=== PATIENT | male | born 1965 | race Caucasian/White ===

== ENCOUNTER → 2021-06-16 11:56 | Outpatient (CLI) | payer OTHER, SELFPAY ==
--- NOTE | ~2021-06-16 | XR_ITS ---
XR lumbar spine 2-3V 06/16/2021 13:28 Indication: Low back pain Procedure: 4 views lumbar spine Comparison: No prior studies for comparison. Findings: Vertebral body heights are maintained. There is disc narrowing at L4-5 and L5-S1. There is endplate hypertrophy at L5-S1. There is facet hypertrophy at L5-S1. Levoscoliosis. No evidence for sp ondylolisthesis. Impression: 1: Moderate lower lumbar spondylosis with levoscoliosis. Reviewed, dictated and finalized at location A. Impression: 1: Moderate lower lumbar spondylosis with levoscoliosis.
--- NOTE | ~2021-06-16 | XR_ITS ---
XR thoracic spine 2V 06/16/2021 13:28 Indication: Back pain Procedure: 3 views thoracic spine Comparison: No prior studies for comparison. Findings: Mild dextrocurvature of the thoracic spine. No fracture, subluxation or dislocation. No par aspinal soft tissue abnormality. Surrounding osseous structures within normal limits. There is athero sclerosis. Pedicles intact. Impression: 1: Mild thoracic spondylosis with dextroscoliosis. Reviewed, dictated and finalized at location A. Impression: 1: Mild thoracic spondylosis with dextroscoliosis.
--- NOTE | ~2021-06-16 | XR_ITS ---
XR cervical spine 4-5V 06/16/2021 13:28 Indication: Neck pain Procedure: 6 views of the cervical spine including flexion/extension views Comparison: No prior studies for comparison. Findings: There is disc narrowing at C5-6. No fracture, subluxation or dislocation. There is moderate uncinate degenerative change at C5-6. No significant alteration of alignment with flexion/extension. Odontoid process within normal limits. Lateral masses are normally aligned. No prevertebral soft tis juanjose swelling. Impression: 1: Moderate cervical spondylosis at C5-6. Reviewed, dictated and finalized at location A. Impression: 1: Moderate cervical spondylosis at C5-6.
== END ==
PROVIDERS: Visit Provider Chiropractor
DX: M47.894 Other spondylosis, thoracic region (principal); M47.892 Other spondylosis, cervical region; M47.896 Other spondylosis, lumbar region
CPT/HCPCS: 72050; 72070; 72100

== ENCOUNTER 2022-11-21 23:50 | Emergency (ER) | payer OTHER, SELFPAY ==
[2022-11-21 23:51] VITALS: BP 172/104; PULSE 110; RESP 16; TEMP 36.7; O2SAT 97
[2022-11-22 00:59] LABS: Alanine Aminotransferase 32 U/L (6-50); Alkaline Phosphatase 91 U/L (38-126); Anion Gap 8 mmol/L (8-16); Aspartate Amino Transferase 28 U/L (17-59); Bilirubin,Total 0.7 mg/dL (0.2-1.3); Blood Urea Nitrogen 19 mg/dL (9-20); Calcium 9.6 mg/dL (8.4-10.2); Carbon Dioxide 30 mmol/L (22-30); Chloride 102 mmol/L (98-107); Estimated Glomerular Filt Rate > 60; Glucose 87 mg/dL (65-110); Potassium 4.2 mmol/L (3.4-5.0); Sodium 140 mmol/L (137-145)
[2022-11-22 01:03] LABS: Basophils Absolute Auto 0.1 K/mm3 (0.0-0.1); Basophils Percent Auto 0.6 % (0.2-1.2); Eosinophils Absolute Auto 0.2 K/mm3 (0-0.3); Eosinophils Percent Auto 1.4 % (0-4.4); Hematocrit 49.1 % (42.0-52.0); Immature Granulocyte Absolute 0.04 K/mm3 (0.00-0.031); Immature Granulocyte Percent A 0.3 % (0-0.5); Lymphocytes Absolute Auto 2.57 K/mm3 (0.9-3.2); Lymphocytes Percent Auto 20.5 % (18.3-44.2); Mean Corpuscular HGB Conc 32.6 g/dl (32-36); Mean Corpuscular Hemoglobin 28.6 pg (26-34); Mean Corpuscular Volume 87.7 fl (80-100); Mean Platelet Volume 9.9 fl (7.4-10.4); Monocytes Absolute Auto 0.8 K/mm3 (0.1-0.6); Neutrophils Absolute Auto 8.9 K/mm3 (1.3-6.7); Neutrophils Percent Auto 71.2 % (45.5-73.1); Platelet Count Result 279 k/mm3 (150-375); Red Cell Distribution Width 12.9 % (11.5-14.5); White Blood Count 12.6 K/mm3 (4.5-10.0)
[2022-11-22 01:53] LABS: Influenza A QL RT-PCR Negative (Negative); Influenza B QL RT-PCR Negative (Negative); RSV RNA, RT-PCR Negative (Negative); SARS-CoV-2 RNA PCR Negative
[2022-11-22 02:23] LABS: Acetaminophen < 10 ug/mL (10-30); Ethanol < 10 mg/dL (<10); Salicylate < 1.0 mg/dL (2-20)
--- NOTE | 2022-11-22 02:25 | ED.GENADULT ---
HPI - General Adult General Chief complaint: Psychiatric Symptoms Stated complaint: SI Time Seen by Provider: 11/22/22 00:35 History of Present Illness HPI narrative: Patient 57-year-old gentleman who presents the emergency department with chief complaint of needs mental health evaluation. The patient states that he has been under a lot of stress in his life with relationships and family issues. The patient states that he does not specifically want to harm himself but is very concerned about that Related Data Allergies Allergy/AdvReac Type Severity Reaction Status Date / Time No Known Drug Allergies Allergy Unknown Other Unverified 11/22/22 00:51 [facility] Social History Social History Substance use type: marijuana Course Vital Signs Vital signs: Vital Signs Temperature 36.7 C 11/21/22 23:51 Pulse Rate 110 H 11/21/22 23:51 Respiratory Rate 16 11/21/22 23:51 Blood Pressure 172/104 H 11/21/22 23:51 Pulse Oximetry 97 11/21/22 23:51 Oxygen Delivery Room Air 11/21/22 23:51 Temperature 36.7 C 11/21/22 23:51 Pulse Rate 110 H 11/21/22 23:51 Respiratory Rate 16 11/21/22 23:51 Blood Pressure 172/104 H 11/21/22 23:51 Pulse Oximetry 97 11/21/22 23:51 Oxygen Delivery Room Air 11/21/22 23:51 Medical Decision Making [facility] Narrative Medical decision making narrative: Differential diagnosis includes suicidal ideation, depression, anxiety, substance-induced mood disorder Laboratory studies were obtained which showed normal CBC electrolytes are within normal limits urinalysis showed a possible UTI salicylate acetaminophen and alcohol were negative COVID and influenza were negative. Patient is medically cleared for psychiatric evaluation referral transfer and admission Patient was seen by the mental health screener. At this time the patient did not meet criteria for involuntary admission and was not wanting voluntary admission Vital Signs Vital Signs: Vital Signs Temperature 36.7 C 11/21/22 23:51 Pulse Rate 110 H 11/21/22 23:51 Respiratory Rate 16 11/21/22 23:51 Blood Pressure 172/104 H 11/21/22 23:51 Pulse Oximetry 97 11/21/22 23:51 Oxygen Delivery Room Air 11/21/22 23:51 Temperature 36.7 C 11/21/22 23:51 Pulse Rate 110 H 11/21/22 23:51 Respiratory Rate 16 11/21/22 23:51 Blood Pressure 172/104 H 11/21/22 23:51 Pulse Oximetry 97 11/21/22 23:51 Oxygen Delivery Room Air 11/21/22 23:51 Lab Data 11/22/22 00:33 11/22/22 00:33 Labs: Lab Results 11/22/22 11/22/22 11/22/22 Range/Units 00:33 00:33 00:33 WBC 12.6 H (4.5-10.0) K/mm3 RBC 5.60 (4.6-6.20) M/mm3 Hgb 16.0 (14.0-18.0) g/dL Hct 49.1 (42.0-52.0) % MCV 87.7 (80-100) fl MCH 28.6 (26-34) pg MCHC 32.6 (32-36) g/dl RDW 12.9 (11.5-14.5) % Plt Count 279 (150-375) k/mm3 MPV 9.9 (7.4-10.4) fl Immature Gran % (Auto) 0.3 (0-0.5) % Neut % (Auto) 71.2 (45.5-73.1) % Lymph % (Auto) 20.5 (18.3-44.2) % Carson % (Auto) 6.0 (2.6-8.5) % Eos % (Auto) 1.4 (0-4.4) % Baso % (Auto) 0.6 (0.2-1.2) % Lymph # (Auto) 2.57 (0.9-3.2) K/mm3 Carson # (Auto) 0.8 H (0.1-0.6) K/mm3 Eos # (Auto) 0.2 (0-0.3) K/mm3 Baso # (Auto) 0.1 (0.0-0.1) K/mm3 Abs Immat Gran (auto) 0.04 H (0.00-0.031) K/mm3 Absolute Neuts (auto) 8.9 H (1.3-6.7) K/mm3 Absolute Nucleated RBC 0.0 (0.0-0.012) K/mm3 Nucleated RBC % 0.0 (0.0-0.2) % Sodium (137-145) mmol/L Potassium (3.4-5.0) mmol/L Chloride (98-107) mmol/L Carbon Dioxide (22-30) mmol/L Anion Gap (8-16) mmol/L BUN (9-20) mg/dL Creatinine (0.7-1.3) mg/dL Estim Creat Clear Calc Estimated GFR (59 - ) Glucose (65-110) mg/dL Calcium (8.4-10.2) mg/dL Total Bilirubin (0.2-1.3) mg/dL AST (17-59) U/L ALT (6-50) U/L Alkaline Phosphatase (38-126) U/L Total Protein (6.3-8.2)
[2022-11-22 03:04] LABS: Appearance Urine Cloudy (Clear); Bacteria Urine 4+ /hpf; Bilirubin Urine Negative (Negative); Blood Urine Negative (Negative); Color Urine Yellow (Yellow); Glucose Urine UA Negative (Negative); Hyaline Casts Urine Present /lpf; Ketones Urine Trace mg/dL (Negative); Leukocyte Esterase Ur 1+ LEU/UL (Negative); Mucus Urine Present /lpf; Nitrate Urine Negative (Negative); Protein Urine Negative (Negative); RBC Urine 0-2 /hpf (0-2); Specific Grav Ur 1.018 (1.001-1.035); Squamous Epithelial Cell Urine None seen /hpf (Few); Urobilinogen Urine 0.2 mg/dL (<2.0); WBC Urine 21-50 /hpf; pH Urine 6.5 (5.0-9.0)
[2022-11-22 03:08] LABS: Add Urine Microscopic? YES
[2022-11-22 04:42] LABS: Barbiturate Screen Urine Negative (Negative); Benzodiazepines Screen Urine Negative (Negative); Cannabinoid Screen Urine Negative (Negative); Cocaine Screen Urine Negative (Negative); Methadone Screen Urine Negative (Negative); Opiate Screen Urine Negative (Negative); Phencyclidine Screen Urine Negative (Negative)
[2022-11-22 05:11] LABS: Amphetamine Screen Urine Positive (Negative)
[2022-11-22 06:55] VITALS: BP 137/96; PULSE 96; RESP 16; O2SAT 99
== END 2022-11-22 07:05 | disposition home or self-care (01) ==
PROVIDERS: Emergency Provider Emergency Medicine; PCP Family Medicine
DX: F32.A Depression, unspecified (principal); N39.0 Urinary tract infection, site not specified; Z20.822 Contact with and (suspected) exposure to COVID-19
CPT/HCPCS: 36415; 80053; 80307; 81001; 84443; 85025; 87077; 87086; 87186; 87637; 99284

== ENCOUNTER 2022-12-21 14:51 | Emergency (ER) | payer OTHER, SELFPAY ==
--- NOTE | ~2022-12-21 | CT_ITS ---
EXAMINATION: CT abdomen pelvis w con DATE: 12/21/2022 20:21 INDICATION: Epigastric and left-sided abdominal pain TECHNIQUE: Computed tomography (CT) of the abdomen and pelvis was performed with 100 mL Omnipaque-350 intravenous contrast. Automated exposure control and iterative reconstruction technique were employe d. The dose-length product was 313.03 mGy-cm. COMPARISON: None. FINDINGS: Lower thorax: Unremarkable Liver: Normal. Biliary/Gallbladder: Gallbladder is normal. No bile duct dilation. Pancreas: No mass or duct dilation. Spleen: Normal. Adrenals:No mass. Kidneys: No mass, stone, or hydronephrosis. GI tract: Severe antral wall edema. No small or large bowel dilation. Normal appendix. Diverticulosis without diverticulitis. Mesentery/Peritoneum: No ascites, mass, or free air. Retroperitoneum: No mass. Pelvis: Prostatomegaly with calcifications. The remaining pelvic organs are within normal limits. Soft Tissues: Soft tissues and body wall unremarkable. Bones: No acute osseous finding. IMPRESSION: Severe antral gastritis. Reviewed, dictated and finalized at location K. IMPRESSION: Severe antral gastritis.
[2022-12-21 15:23] VITALS: BP 161/110; PULSE 87; RESP 17; TEMP 36.6; O2SAT 99
[2022-12-21 15:51] LABS: Basophils Absolute Auto 0.1 K/mm3 (0.0-0.1); Basophils Percent Auto 0.5 % (0.2-1.2); Eosinophils Percent Auto 0.2 % (0-4.4); Hematocrit 51.5 % (42.0-52.0); Immature Granulocyte Absolute 0.05 K/mm3 (0.00-0.031); Immature Granulocyte Percent A 0.3 % (0-0.5); Lymphocytes Percent Auto 10.1 % (18.3-44.2); Mean Corpuscular Hemoglobin 28.6 pg (26-34); Mean Corpuscular Volume 86.6 fl (80-100); Mean Platelet Volume 9.7 fl (7.4-10.4); Monocytes Absolute Auto 0.8 K/mm3 (0.1-0.6); Monocytes Percent Auto 5.4 % (2.6-8.5); Neutrophils Absolute Auto 12.4 K/mm3 (1.3-6.7); Neutrophils Percent Auto 83.5 % (45.5-73.1); Platelet Count Result 272 k/mm3 (150-375); Red Blood Count 5.95 M/mm3 (4.6-6.20); Red Cell Distribution Width 12.7 % (11.5-14.5); White Blood Count 14.8 K/mm3 (4.5-10.0)
[2022-12-21 16:01] LABS: Alanine Aminotransferase 31 U/L (6-50); Albumin Level 4.8 g/dL (3.5-5.1); Alkaline Phosphatase 81 U/L (38-126); Anion Gap 6 mmol/L (8-16); Aspartate Amino Transferase 28 U/L (17-59); Bilirubin,Total 0.7 mg/dL (0.2-1.3); Blood Urea Nitrogen 14 mg/dL (9-20); Calcium 10.1 mg/dL (8.4-10.2); Carbon Dioxide 33 mmol/L (22-30); Chloride 95 mmol/L (98-107); Estimated CRCL calculation 101 ml/min; Estimated Glomerular Filt Rate > 60; Glucose 128 mg/dL (65-110); Lipase 144 U/L (23-300); Potassium 4.3 mmol/L (3.4-5.0); Sodium 134 mmol/L (137-145)
--- NOTE | 2022-12-21 19:43 | ED.ABDPAIN ---
HPI - Abdominal Pain General Chief Complaint: Abdominal Pain Stated Complaint: ABD PAIN X2DAYS Time Seen by Provider: 12/21/22 19:12 History of Present Illness HPI narrative: 57-year-old male presented to the emergency department for evaluation of epigastric and left-sided abdominal pain. Patient states the pain started a few days ago and has been persistent. Patient states he has had no nausea vomiting at home but did develop some nausea here in the ED. Patient denies any significant past medical history. Patient denies any prior history of abdominal surgeries. Patient states he has no prior history of pancreatitis. Patient states he does drink multiple glasses of wine a day but denies any prior history of pancreatitis and denies any prior history of gallbladder disease. Related Data Allergies Allergy/AdvReac Type Severity Reaction Status Date / Time No Known Drug Allergies Allergy Unknown Other Verified 12/21/22 19:52 Review of Systems Review of Systems: All systems reviewed & are unremarkable except as noted in HPI and below PMFSH Social History Social History Substance use type: marijuana Exam Narrative: APPEARANCE: Well appearing, distress secondary to epigastric pain, well-nourished HEAD: normocephalic, atraumatic. EYES: PERRLA/EOMI, conjunctivae clear. NECK: Supple. No adenopathy, no masses. RESPIRATORY: Airway patent, respirations nonlabored. Clear to auscultation bilaterally, no rales, rhonchi, wheezing. CARDIOVASCULAR: Regular rate and rhythm without murmurs rubs or gallops. ABDOMINAL: Soft, nondistended, normal bowel sounds, epigastric tenderness to palpation MUSCULOSKELETAL: Moves all extremities. Strength/ROM intact, No edema, No calf tenderness. NEURO: Alert. Cranial nerves II through XII intact. Grossly intact SKIN: Warm, dry. Normal Color Course Course Emergency Course: 57-year-old male presented ED for evaluation of epigastric pain. Patient's symptoms were improved with a GI cocktail. Patient was afebrile with a mild leukocytosis of 14.8. Patient's CMP was similar to his baseline. CT scan showed gastritis. Patient was started on Prilosec at home and provided Carafate as well. Patient was encouraged of close follow-up with GI. All question concerns were addressed patient was well-appearing at discharge. Vital Signs Vital signs: Vital Signs Temperature 97.8 F 12/21/22 15:23 Pulse Rate 87 12/21/22 15:23 Respiratory Rate 17 12/21/22 15:23 Blood Pressure 161/110 H 12/21/22 15:23 Pulse Oximetry 99 12/21/22 15:23 Oxygen Delivery Room Air 12/21/22 15:23 Temperature 97.8 F 12/21/22 15:23 Pulse Rate 62 12/21/22 21:24 Respiratory Rate 18 12/21/22 21:24 Blood Pressure 182/110 H 12/21/22 21:24 Pulse Oximetry 100 12/21/22 21:24 Oxygen Delivery Room Air 12/21/22 15:23 MDM - Abdominal Pain Differential Diagnosis Differential diagnosis: Likely abdominal pain, diverticulitis, gastroenteritis, pancreatitis and small bowel obstruction Lab Data Attestation: I reviewed the patient's lab results. 12/21/22 15:44 12/21/22 15:44 Labs: Lab Results 12/21/22 12/21/22 12/21/22 Range/Units 15:44 15:44 19:44 WBC 14.8 H (4.5-10.0) K/mm3 RBC 5.95 (4.6-6.20) M/mm3 Hgb 17.0 (14.0-18.0) g/dL Hct 51.5 (42.0-52.0) % MCV 86.6 (80-100) fl MCH 28.6 (26-34) pg MCHC 33.0 (32-36) g/dl RDW 12.7 (11.5-14.5) % Plt Count 272 (150-375) k/mm3 MPV 9.7 (7.4-10.4) fl Immature Gran % (Auto) 0.3 (0-0.5) % Neut % (Auto) 83.5 H (45.5-73.1) % Lymph % (Auto) 10.1 L (18.3-44.2) % Hendricks % (Auto) 5.4 (2.6-8.5) % Eos % (Auto) 0.2 (0-4.4) % Baso % (Auto) 0.5 (0.2-1.2) % Lymph # (Auto) 1.50 (0.9-3.2) K/mm3 Hendricks # (Auto) 0.8 H (0.1-0.6) K/mm3 Eos # (Auto) 0.0 (0-0.3) K/mm3 Baso # (Auto) 0.1 (0.0-0.1) K/mm3 Abs Immat Gran (auto) 0.05 H (0.00-0.031) K/mm3 Absolute
[2022-12-21] MEDS: BELLADONNA ALK/PHENOB ELIX 10 ML, MAG HYDROX/ALUMINUM HYD/SIMETH 30 ML, LIDOCAINE HCL 2... PO (19:53)
[2022-12-21 19:55] LABS: Appearance Urine Turbid (Clear); Bacteria Urine 1+ /hpf; Bilirubin Urine Negative (Negative); Blood Urine Negative (Negative); Color Urine Yellow (Yellow); Glucose Urine UA Negative (Negative); Ketones Urine 1+ mg/dL (Negative); Leukocyte Esterase Ur Trace LEU/UL (Negative); Nitrate Urine Negative (Negative); Non Pathogenic Casts 0-2; Protein Urine Negative (Negative); RBC Urine 0-2 /hpf (0-2); Specific Grav Ur 1.011 (1.001-1.035); Squamous Epithelial Cell Urine None seen /hpf (Few); Urobilinogen Urine 0.2 mg/dL (<2.0); WBC Urine 0-5 /hpf
[2022-12-21 19:57] VITALS: BP 187/113; O2SAT 100
[2022-12-21] MEDS: SODIUM CHLORIDE 0.9% IV 1,000 ML 999 ML IV CONT (20:00)
[2022-12-21 20:01] LABS: Add Urine Microscopic? YES
[2022-12-21] MEDS: PANTOPRAZOLE SODIUM IV 40 MG VIAL IV PUSH (20:01)
[2022-12-21] MEDS: ONDANSETRON INJ 4 MG/2 ML VIAL IV PUSH (20:01)
[2022-12-21 20:02] VITALS: BP 203/119; O2SAT 100
[2022-12-21] MEDS: MAG HYDROX/AL HYDROX/SIMETH 30 ML UDC PO (21:18)
[2022-12-21 21:24] VITALS: BP 182/110; PULSE 62; RESP 18; O2SAT 100
== END 2022-12-21 21:24 | disposition home or self-care (01) ==
PROVIDERS: Emergency Medicine; Emergency Provider Emergency Medicine; PCP Nurse Practitioner Family
DX: K29.70 Gastritis, unspecified, without bleeding (principal)
CPT/HCPCS: 36415; 74177; 80053; 81001; 83690; 85025; 96361; 96374; 96375; 99284; A9270; C9113; J2405; J7030; Q9967